=== PATIENT | male | born 1960 | race Caucasian/White ===

== ENCOUNTER 2016-08-02 17:27 | Emergency (ER) | payer OTHER ==
[~2016-08-02] VITALS: Ht 172.7 cm; Wt 100.2 kg
[~2016-08-02 17:27] MED LIST: ACETAZOLAMIDE500 MG PO; AMITRIPTYLINE H75 MG PO; AMLODIPINE BESY10 M1 PO; ASPIRIN EC81 M1 PO; ATORVASTATIN CA10 MG PO; AVAPRO 150MG150 MG PO; BENTYL20 MG PO; CARDURA1 M1 PO; COMBIGAN EYE DRO5 ML OS; COMBIGAN EYE DROPS; COREG25 M1 PO; D3-5050000 UNIT PO; FAMOTIDINE20 M1 PO; FAMOTIDINE20 MG PO; FENOFIBRATE145 M1 PO; FENOFIBRATE145 MG; FENOFIBRATE48 M1 PO; FUROSEMIDE40 MG PO; GOOD SENSE ASPI81 M1 PO; IRBESARTAN75 M1 PO; KEFLEX500 M1 PO; KEFLEX500 MG PO; LOVAZA1 G1 PO; LOVAZA1 GM PO; NEURONTIN400 M1 PO; NORVASC 5MG TAB5 MG PO; NOVOLOG100 U/ML SC; NOVOLOG100 UNIT/2 SC; PILOCARPINE HCL15 M1; PILOCARPINE HCL15 M2 OS; TRICOR 48MG48 MG PO; VITAMIN C1000 M1 PO; VITAMIN D250000 UNIT PO; VITAMIN D5000 I1 PO; ZOFRAN4 M1 PO
[2016-08-02 17:33] VITALS: BP 165/78
--- NOTE | 2016-08-02 17:54 | ED SKIN/ALLERGY COMPLAINT ---
History of Present Illness General Chief Complaint: Skin Rash/ Abcess Stated Complaint: INEFECTION TO LEFT LOWER EXTREMITY Source: patient Exam Limitations: no limitations Vital Signs & Intake/Output Vital Signs & Intake/Output Vital Signs Date Time Temp Pulse Resp B/P Pulse O2 O2 Flow FiO2 Ox Delivery Rate 08/02 1733 97.3 72 18 165/78 96 Room Air Allergies Coded Allergies: Sulfa (Sulfonamide Antibiotics) (Severe, PROJECTIVE VOMITING, BLEEDING 11/20/15) adhesive tape (SKIN IRRITATION 04/26/16) Reconcile Medications Amitriptyline Hydrochloride (Amitriptyline HCl) 75 MG TAB 1 TAB PO DAILY MENTAL HEALTH (Reported) HOLD: NPO Amlodipine Besylate 10 MG TABLET 1 TAB PO DAILY HEART/BP (Reported) Ascorbic Acid (Vitamin C) 1,000 MG TAB 1 TAB PO DAILY SUPPLEMENT (Reported) HOLD: NPO Aspirin 81 MG TAB.CHEW 1 TAB PO DAILY HEART HEALTH (Reported) HOLD: NPO Aspirin (Ecotrin*) 81 MG TABLET.DR 1 TAB PO DAILY HEART HEALTH (Reported) Atorvastatin Calcium (Lipitor) 10 MG TABLET 1 TAB PO DAILY CHOLESTEROL ( Reported) HOLD: NPO Brimonidine Tartrate/Timolol (Combigan Eye Drops) 5 ML DROPS 1 DROP OS BID LEFT EYE (Reported) Carvedilol (Coreg) 25 MG TABLET 2 TAB PO QAM HEART (Reported) Carvedilol (Coreg) 25 MG TABLET 1 TAB PO QPM HEART (Reported) Cephalexin (Keflex) 500 MG CAPSULE 1 CAP PO TID INFECTION Clindamycin HCl (Cleocin HCl) 300 MG CAPSULE 1 CAP PO TID CELLULITIS Doxazosin (Cardura) 1 MG TABLET 1 TAB PO QPM HEART HEALTH (Reported) Ergocalciferol (Vitamin D2) (Vitamin D2) 50,000 UNIT CAPSULE 1 CAP PO EVERY 2 WEEKS HEALTH SUPPLEMENT (Reported) Famotidine 20 MG TABLET 1 TAB PO DAILY GI (Reported) Fenofibrate Nanocrystallized (Fenofibrate) 48 MG TABLET 1 TAB PO DAILY BLOOD HEALTH (Reported) Furosemide 40 MG TABLET 1 TAB PO DAILY HEART HEALTH (Reported) HOLD: NPO Gabapentin (Neurontin) 400 MG CAPSULE 2 CAP PO BID NERVE PAIN (Reported) Insulin Aspart (Novolog) (Unknown Strength) VIAL (Unknown Dose) SC AD PRN OMNI POD INSULIN PUMP (Reported) Irbesartan 75 MG TABLET 1 TAB PO DAILY HIGH BLOOD PRESSURE (Reported) [place]-3 Acid Ethyl Esters (Lovaza) 1 GM CAPSULE 2 CAP PO BID HEART HEALTH ( Reported) Pilocarpine Hydrochloride (Pilocarpine HCl) 15 ML DROPS 1 DROP OS BID LEFT EYE (Reported) Triage Note: PT STATES THAT HE HAS HISTORY OF CELLULITIS AND THAT FRIDAY HE NOTED A SORE TO HIS L SEG[place]. PT HAD VEIN CLOSURE FRIDAY TO THIS AREA Triage Nurses Notes Reviewed? yes Onset: Gradual Duration: constant Timing: recent history Severity: moderate Severity Numbers: 5 HPI: Patient is a 56-year-old male with a past medical history of chronic cellulitis to the left lower extremity of his leg where he states that on July 11 he's been on Keflex for concerns of cellulitis to left lower extremity which she states 8 days ago he received a vein closure to the left leg in which he followed up with his surgeons group on Friday for checkup of concerns of not getting better of cellulitis in which the patient states that he was advised to continue with Keflex. Patient states that he made soto around the borders [place] and states that symptoms do not improve and states that he has presented on multiple occasions to [place] emergency room and receives IV Unasyn infusion and and continues with Keflex which always resolve his infections. Patient is requesting this today. Patient denies any fever chills foot swelling hemoptysis shortness of breath or active discharge. (KARINA LONG) Past History Travel History Traveled to [place] past 21 day No Medical History Any Pertinent Medical History? 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 No (KARINA LONG) Review of Systems Review of Systems Constitutional: Reports: no symptoms. EENTM: Reports: no symptoms. Respiratory: Reports: no symptoms. Cardiovascular: Reports: no symptoms. GI: Reports: no symptoms. Genitourinary: Reports: no symptoms. Musculoskeletal: Reports: no symptoms. Skin: Reports: see HPI, erythema. Neurological/Psychological: Reports: no symptoms. Hematologic/Endocrine: Reports: no symptoms. Immunologic/Allergic: Reports: no symptoms. All Other Systems: Reviewed and Negative (KARINA LONG) Physical Exam Physical Exam General Appearance: no apparent distress, alert, comfortable Head: atraumatic Eyes: Bilateral: normal appearance. Ears, Nose, Throat: hearing grossly normal Neck: normal inspection, supple Cardiovascular: regular rate/rhythm Extremities: normal range of motion, NO CALF TENDERNESS Skin: intact Skin Problem Location: lower extremities Lymphatic: no anterior cervical anmol Comments: Interpretive exam Diagram Body: 1) 1.5 cm erythema warmth tenderness and mild surrounding swelling noted no active discharge well-healing 5 mm centralized scab noted (KARINA LONG) Progress Differential Diagnosis: abscess/cellulitis, allergic reaction, contact dermatitis, drug reaction, erythema multiforme, lyme disease, scarlet fever, syphilis/gonococcemia, urticaria, dvt Plan of Care: Current Medications Sig/Patricia Start time Last Medication Dose Stop Time Status Admin Ampicillin Sodium/ 1,500 MG ONCE ONE 08/02 1814 AC Sulbactam Sodium 08/02 1843 (Unasyn) Sodium Chloride 100 ML (Normal Saline 0.9%) Patient will receive Unasyn in the ER and declined blood work as he states that he is a difficult stick and did not want to be stuck on multiple occasions. Patient will also be covered for MRSA coverage and given clindamycin this will be sent to his pharmacy Patient has no concerns of underlying abscess no fluctuance noted no active discharge Upon discharge patient looks well no apparent distress and will comply with discharge instructions and had no questions (KARINA LONG) Departure Departure Disposition: HOME OR SELF CARE Condition: Stable Clinical Impression Primary Impression: Cellulitis of leg, left Referrals: SILVIO NAILS,ALMA DELIA Barahona (PCP/Family) Additional Instructions: As discussed on Friday follow-up with your surgeon for further evaluation treatment. Continue your previously prescribed Keflex as directed and begin the prescription of clindamycin as directed. Prescriptions waiting and [facility]. If symptoms worsen or you develop a new concerning symptom return to emergency room immediately. Begin to elevate your leg for swelling. Departure Forms: Customer Survey General Discharge Information Prescriptions: Current Visit Scripts Clindamycin HCl (Cleocin HCl) 1 CAP PO TID #30 CAP (KARINA LONG) PA/NEUROUROLOGIST Co-Sign Statement Statement: ED Attending supervision documentation- [] I saw and evaluated the patient. I have also reviewed all the pertinent lab results and diagnostic results. I agree with the findings and the plan of care as documented in the PA's/NEUROUROLOGIST's documentation. [X] I have reviewed the ED Record and agree with the PA's/NEUROUROLOGIST's documentation. [] Additions or exceptions (if any) to the PAs/NEUROUROLOGIST's note and plan are summarized below: [] (NANDINI NAILS,ALMA DELIA Benson)
[2016-08-02] MEDS ORDERED: CLEOCIN HCL300 M1 PO (18:06)
== END 2016-08-02 18:55 ==
LOC: ERH 17:27
DX: L03.116 Cellulitis of left lower limb (principal)
CPT/HCPCS: 96365